=== PATIENT | female | born 2000 | race Caucasian/White ===

== ENCOUNTER 2021-03-19 15:37 | Emergency (ER) | payer BC, SELFPAY ==
--- NOTE | ~2021-03-19 | XR_ITS ---
XR heel LT min 2V DATE: 03/19/2021 16:54 INDICATION: Heel pain TECHNIQUE: Axial and lateral views COMPARISON: None FINDINGS: No fracture, dislocation or bone destruction. IMPRESSION: Negative Reviewed, dictated and finalized at location B. IMPRESSION: Negative
--- NOTE | ~2021-03-19 | XR_ITS ---
XR foot LT min 3V DATE: 03/19/2021 16:53 INDICATION: Lateral ankle and foot pain after getting stuck in rocks TECHNIQUE: 4 views COMPARISON: None FINDINGS: No fracture or dislocation, periosteal reaction or bone destruction. IMPRESSION: Negative Reviewed, dictated and finalized at location B. IMPRESSION: Negative
[2021-03-19 16:20] VITALS: BP 115/91; PULSE 75; RESP 20; TEMP 36.9; O2SAT 100
--- NOTE | 2021-03-19 16:23 | ED.LOWEXIN ---
HPI - Extremity Injury (Lower) General Chief Complaint: Extremity Injury, Lower Stated Complaint: L ankle pain Time Seen by Provider: 03/19/21 15:44 Source: patient Mode of arrival: wheelchair Limitations: no limitations History of Present Illness HPI Narrative: 20-year-old woman comes in today complaining of pain in her left foot that has been present for the last week. She states she has had difficulty weight-bearing intermittently. She states that her foot got caught between 2 rocks while swimming 1 week ago. The pain is behind her ankle is worse with dorsiflexion and plantar flexion. She denies any numbness or tingling. complaint: foot injury Onset (ago): week(s) (1) Injury: Left: ankle and foot Type of Injury: blunt Place: street/outdoors Severity: moderate Relieving factors: rest Exacerbating factors: weight bearing, movement and palpation Context: other ( Caught between rocks.) Associated symptoms: able to partially bear weight Other symptoms: none Treatments prior to arrival: cold therapy Related Data Allergies Allergy/AdvReac Type Severity Reaction Status Date / Time No Known Allergies Allergy Verified 03/19/21 16:39 Review of Systems Review of Systems: All systems reviewed & are unremarkable except as noted in HPI and below Constitutional: Constitutional: Denies chills and Denies fever(s) Cardiovascular: Cardiovascular: Denies chest pain and Denies radiating jaw, neck or arm pain Respiratory: Respiratory: Denies cough and Denies dyspnea Gastrointestinal: Gastrointestinal: Denies abdominal pain, Denies nausea and Denies vomiting Genitourinary: Genitourinary: Denies nocturia and Denies dysuria Musculoskeletal: Musculoskeletal: Denies back pain, Reports arthralgias and Denies joint swelling Integumentary/Breasts: Skin/Breast: Denies pruritus and Denies rash Neurologic: Denies vertigo, Denies dizziness, Denies syncope and Denies numbness Hematologic/Lymphatic: Hematologic/Lymphatic: Denies easy bleeding and Denies easy bruising Allergic/Immunologic: Allergic/Immunologic: Denies lip swelling and Denies throat swelling [facility] Social History Social History (Updated 03/19/21 @ 17:12 by Jose Camejo MD) Smoking status: Never smoker Alcohol intake: never Substance use: never Living arrangements: with family Gender identity (if verbalized by the patient): Female Exam Const: General: healthy appearing and alert Orientation/consciousness: patient oriented x3 Limitations: no limitations Other: Mild acute distress. Resp: Effort & Inspection: normal respiratory effort and not labored Auscultation: clear to auscultation bilaterally, no rales, no rhonchi and no wheezes Cardio: Rate: regular rate Rhythm: regular rhythm Heart sounds: no murmurs Skin: General skin exam: normal color, no jaundice and no pallor Rashes: no rashes Neuro: General: patient oriented x3, moves all extremities and no focal motor deficits Speech: normal speech Extrem: General: normal to inspection and no clubbing, cyanosis or edema Other: Mild tenderness but on the medial malleolus of the left ankle as well as over the body of the calcaneus. There is no swelling, deformity or overlying abrasions. Psych: Appearance: grossly normal Mental Status: mental status grossly normal Affect: normal affect Attitude: cooperative Discharge Plan Discharge Clinical Impression: Ankle sprain and strain Patient Disposition: Home, Self-Care Condition: Stable Instructions: Ankle Sprain (ED) Additional Instructions: Rest, ice, elevation and ibuprofen. Use crutches if it is too painful to walk on. Follow-up with your doctor Thursday or Thursday. Prescriptions: New (DME) crutch Misc See Rx Instructions .ROUTE .MEDSUPPLY Qty: 2 RF: 0 Follow-up/Referrals: Kp,ROSIBEL Lazcano [Primary Care Provider] - Stand Alone Forms: Work/School Release IP Time of Disposition: 17:15
[2021-03-19] MEDS: IBUPROFEN 600 MG TABLET PO (16:56)
[2021-03-19 17:32] VITALS: BP 102/71; PULSE 86; RESP 20; O2SAT 99
== END 2021-03-19 17:36 | disposition home or self-care (01) ==
PROVIDERS: Emergency Provider Emergency Medicine; PCP Physician Assistant
DX: S93.402A Sprain of unspecified ligament of left ankle, initial encounter (principal); X58.XXXA Exposure to other specified factors, initial encounter
CPT/HCPCS: 73630; 73650; 99283; A9270

== ENCOUNTER 2021-08-12 03:05 | Emergency (ER) | payer BC, SELFPAY ==
--- NOTE | ~2021-08-12 | CT_ITS ---
EXAMINATION: CT abdomen pelvis w con DATE: 08/12/2021 04:54 INDICATION: Low abdominal pain. TECHNIQUE: Computed tomography (CT) of the abdomen and pelvis was performed with 100 mL Omnipaque 350 intravenous contrast. Automated exposure control and iterative reconstruction technique were employe d. The dose-length product was 220.79 mGy-cm. COMPARISON: None. FINDINGS: The visualized portions of the lung bases demonstrate minimal atelectasis on the left. No p leural effusion. The heart size is normal. No pericardial effusion. The liver demonstrates focal stea tosis adjacent to ligamentum teres. The gallbladder, spleen, pancreas, adrenal glands, and kidneys ar e normal. There are no dilated loops of bowel. The appendix is normal. There are no pathologically en larged lymph nodes. There is no free intraperitoneal fluid. There is dextroscoliosis of lumbar spine. IMPRESSION: 1. No specific etiology for the patient's symptoms. Reviewed, dictated and finalized at location A. R [employer]
[2021-08-12 03:05] VITALS: BP 124/89; PULSE 85; RESP 18; TEMP 36.8; O2SAT 100
[2021-08-12] MEDS: MORPHINE SULFATE (*CRX) 2 MG/ML INJ IV PUSH (04:03)
[2021-08-12] MEDS: ONDANSETRON INJ 4 MG/2 ML VIAL IV PUSH (04:05)
[2021-08-12] MEDS: PANTOPRAZOLE SODIUM IV 40 MG VIAL IV PUSH (04:07)
[2021-08-12] MEDS: SODIUM CHLORIDE 0.9% IV 1,000 ML 999 ML IV CONT (04:07)
[2021-08-12 04:22] LABS: Hematocrit 35.1 % (35.0-49.0); Hemoglobin 12.4 g/dL (12.0-15.0); Mean Corpuscular HGB Conc 35.3 g/dL (32.0-36.0); Mean Corpuscular Hemoglobin 32.5 pg (27.0-31.0); Mean Corpuscular Volume 92.1 fL (78.0-102.0); Mean Platelet Volume 9.2 fl (9.2-11.8); Platelet Count Result 152 K/mm3 (150-420); Red Blood Count 3.81 M/mm3 (4.20-5.40); Red Cell Distribution Width 11.5 % (11.6-14.4); White Blood Count 3.8 K/mm3 (4.8-10.8)
[2021-08-12 04:25] LABS: Bilirubin Urine Negative (Negative); Color Urine Yellow (Yellow); Glucose Urine UA Negative (Negative); Ketones Urine Trace (Negative); Leukocyte Esterase Ur Negative (Negative); Nitrate Urine Negative (Negative); Protein Urine Negative (Negative); Specific Grav Ur 1.025 (1.010-1.020)
[2021-08-12 04:27] LABS: Pregnancy On Board Control Positive; Urine Pregnancy Test Negative
[2021-08-12 04:32] LABS: Alanine Aminotransferase 20 U/L (14-59); Albumin Level 3.5 g/dL (3.4-5.0); Alkaline Phosphatase 64 U/L (46-116); Anion Gap 11 mmol/L (8-16); Aspartate Amino Transferase 15 U/L (15-37); Bilirubin,Total 0.5 mg/dL (0.00-1.00); Blood Urea Nitrogen 11 mg/dL (7-18); Calcium 8.2 mg/dL (8.5-10.1); Carbon Dioxide 24 mmol/L (21-32); Chloride 106 mmol/L (98-108); Estimated CRCL calculation 82 ml/min; Estimated Glomerular Filt Rate > 60; Glucose 93 mg/dL (70-99); Lipase 53 U/L (73-393); Osmolality Calculated 291 mOsm/kg (285-295); Potassium 3.4 mmol/L (3.5-5.1); Sodium 141 mmol/L (136-145); Total Protein 6.3 g/dL (6.4-8.2)
[2021-08-12 04:35] LABS: Add Urine Microscopic? YES; Appearance Urine Sl Cloudy (Clear); Blood Urine Trace-Intact (Negative); RBC Urine 0-2 /hpf (0-2); WBC Urine None seen /hpf (0-3)
[2021-08-12 04:36] LABS: Bacteria Urine 1+ /hpf; Mucus Urine Heavy /lpf; Squamous Epithelial Cell Urine Moderate /hpf (Few)
[2021-08-12 04:38] LABS: Lactic Acid Reflex 0.7 mmol/L (0.4-2.0)
[2021-08-12 04:52] LABS: Band Neutrophils Percent 0 % (0-6); Basophils Absolute Manual 0.03 K/mm3 (0-0.1); Basophils Percent Manual 1 % (0-1); Eosinophils Absolute Manual 0.15 K/mm3 (0.02-0.5); Eosinophils Percent Manual 4 % (1-6); Lymphocytes Absolute Manual 1.59 K/mm3 (1.1-4.5); Lymphocytes Percent Manual 42 % (18-44); Monocytes Absolute Manual 0.45 K/mm3 (0.1-0.90); Monocytes Percent Manual 12 % (3-9); Neutrophils Absolute Manual 1.55 K/mm3 (1.7-7.2); Neutrophils Percent Manual 41 % (46-73); Platelet Estimate Adequate (Adequate); Total Cells Counted 100
--- NOTE | 2021-08-12 05:34 | ED.NAVMDI ---
HPI - Nausea/Vomiting/Diarrhea General Chief complaint: Nausea/Vomiting/Diarrhea Stated complaint: PAIN Time Seen by Provider: 08/12/21 03:07 Source: patient and RN notes reviewed Mode of arrival: ambulatory Limitations: no limitations History of Present Illness MD elicited complaint: nausea and vomiting Onset (ago): day(s) (2) Description of vomiting: watery Description of diarrhea: watery Associated nausea: Yes Associated abdominal pain: Yes Location of pain: periumbilical Radiation: periumbilical Pain consistency: colicky Severity: moderate Pain scale (0-10): 4 Quality: cramping, aching and dull Exacerbating factors: none Relieving factors: none Associated symptoms: denies other symptoms Related Data Allergies Allergy/AdvReac Type Severity Reaction Status Date / Time No Known Allergies Allergy Verified 03/19/21 16:39 Review of Systems Review of Systems: All systems reviewed & are unremarkable except as noted in HPI and below PMFSH Past Medical History Medical History Gastroenteritis Social History Social History Smoking status: Never smoker Alcohol intake: never Substance use: never Gender identity (if verbalized by the patient): Female Exam Const: General: no acute distress and alert Orientation/consciousness: patient oriented x3 Limitations: no limitations HENMT: Head: normal to inspection Ears: external ears normal and TM's normal bilaterally General nose exam: Normal external nose present and Normal nares present Face and sinus: normal facial exam Mouth: Yes moist mucous membranes Teeth and gingiva: dentition normal Eyes: Cornea: corneas normal Pupils: Equal, round and reactive pupils present EOM: EOMs intact bilaterally Neck: Neck: normal visual inspection and no lymphadenopathy Chest: Chest palpation & inspection: normal inspection of the chest Resp: Effort & Inspection: normal respiratory effort Auscultation: clear to auscultation bilaterally Cardio: Rate: regular rate Rhythm: regular rhythm GI: GI Palp: Yes Soft to palpation and No Tenderness to palpation present (GI) Percussion: Yes normal to percussion Auscultation: normal bowel sounds : General: Yes bladder normal to palpation and Yes no CVA tenderness Back/Spine/Pelvis: Back: no CVA tenderness Skin: General skin exam: normal color Rashes: no rashes Neuro: General: patient oriented x3, moves all extremities, no focal motor deficits and CN's II-XI intact bilaterally Cranial nerves: Yes Nystagmus not present Extrem: General: normal to inspection and no pedal edema Psych: Appearance: grossly normal and well kempt Mental Status: mental status grossly normal Affect: normal affect Attitude: cooperative Thought content: Yes Normal thought content present Course Course Emergency Course: Pt was stable in the ED. no acute GI loss. Reevaluation(s) Date: 08/12/21 Time: 03:59 Vital Signs Vital signs: Vital Signs Temperature 36.8 C 08/12/21 03:05 Pulse Rate 85 08/12/21 03:05 Respiratory Rate 18 08/12/21 03:05 Blood Pressure 124/89 08/12/21 03:05 Pulse Oximetry 100 08/12/21 03:05 Temperature 36.4 C L 08/12/21 05:40 Pulse Rate 74 08/12/21 05:40 Respiratory Rate 18 08/12/21 05:40 Blood Pressure 104/74 08/12/21 05:40 Pulse Oximetry 99 08/12/21 05:40 MDM - Nausea/Vomiting/Diarrhea Differential Diagnosis Differential diagnosis: Likely food poisoning, gastroenteritis and drug-induced nausea and vomiting Medical Records Attestation: I reviewed the patient's medical records. Lab Data Attestation: I reviewed the patient's lab results. Result diagrams: 08/12/21 04:13 08/12/21 04:13 Labs: Lab Results 08/12/21 08/12/21 08/12/21 Range/Units 04:12 04:13 04:13 WBC 3.8 L (4.8-10.8) K/mm3 RBC 3.81 L (4.20-5.40) M/mm3 Hgb 12.4
[2021-08-12 05:40] VITALS: BP 104/74; PULSE 74; RESP 18; TEMP 36.4; O2SAT 99
== END 2021-08-12 05:45 | disposition home or self-care (01) ==
PROVIDERS: Emergency Provider Emergency Medicine; PCP Physician Assistant
DX: K52.9 Noninfective gastroenteritis and colitis, unspecified (principal); N39.0 Urinary tract infection, site not specified
CPT/HCPCS: 36415; 74177; 80053; 81001; 81025; 83605; 83690; 85025; 96361; 96374; 96375; 99283; 99284; C9113; J2270; J2405; J7030; Q9967